=== PATIENT | female | born 1990 | race Caucasian/White ===

== ENCOUNTER 2016-04-24 16:53 | Outpatient (CLI) | payer OTHER | END 2016-04-24 16:54 | disposition home or self-care (01) | DX: Z36 Encounter for antenatal screening of mother (principal) ==

== ENCOUNTER 2016-05-22 14:52 | Outpatient (CLI) | payer OTHER | END 2016-05-22 14:53 | disposition home or self-care (01) | DX: Z3A.15 15 weeks gestation of pregnancy (principal) ==

== ENCOUNTER 2016-06-25 07:33 | Outpatient (CLI) | payer OTHER | END 2016-06-25 07:34 | disposition home or self-care (01) | DX: Z36 Encounter for antenatal screening of mother (principal) ==

== ENCOUNTER 2016-08-09 10:15 | Outpatient (CLI) | payer OTHER ==
[2016-08-09 11:41] LABS: HCT - HEMATOCRIT 29.9 % (37.0-47.0); HGB - HEMOGLOBIN 10.6 g/dL (12.0-16.0); MEAN CORPUSCULAR HEMOGLOBIN 30.7 pg (27.0-31.0); MEAN CORPUSCULAR HGB CONC 35.4 g/dL (32.0-36.0); MEAN CORPUSCULAR VOLUME 86.9 fL (81.0-99.0); MEAN PLATELET VOLUME 8.3 fL (7.9-10.8); RED BLOOD COUNT 3.44 10^6/uL (4.20-5.40); RED CELL DISTRIBUTION WIDTH 12.9 % (12.0-15.0); WHITE BLOOD COUNT 9.1 x10^3/uL (4.8-10.8)
== END 2016-08-09 10:16 | disposition home or self-care (01) ==
LOC: LAB 10:15
PROVIDERS: ATTEND Obstetrics & Gynecology
DX: Z36 Encounter for antenatal screening of mother (principal)
CPT/HCPCS: 36415; 82950; 86850

== ENCOUNTER 2016-10-09 08:00 | Outpatient (CLI) | payer OTHER | END 2016-10-09 08:01 | disposition home or self-care (01) | LOC: LAB.R 08:00 | PROVIDERS: ATTEND Obstetrics & Gynecology | DX: Z34.83 Encounter for supervision of other normal pregnancy, third trimester (principal) | CPT/HCPCS: 87081 ==

== ENCOUNTER 2016-11-15 08:23 | Outpatient (CLI) | payer OTHER ==
[2016-11-15 08:37] VITALS: BP 135/71
== END 2016-11-15 09:12 | disposition home or self-care (01) ==
LOC: WFO 08:23 → FBP 08:30 → WFO 09:12
PROVIDERS: ATTEND Obstetrics & Gynecology
DX: O48.0 Post-term pregnancy (principal); Z3A.41 41 weeks gestation of pregnancy
CPT/HCPCS: 59025

== ENCOUNTER 2016-11-18 16:18 | Outpatient (CLI) | payer OTHER ==
[2016-11-18 16:47] VITALS: BP 126/75
== END 2016-11-18 17:14 | disposition home or self-care (01) ==
LOC: WFO 16:18 → FBP 16:19 → WFO 17:14
PROVIDERS: ATTEND Obstetrics & Gynecology
DX: O48.0 Post-term pregnancy (principal); Z3A.41 41 weeks gestation of pregnancy
CPT/HCPCS: 59025

== ENCOUNTER 2016-11-19 13:27 | Inpatient (IN) | payer OTHER ==
[2016-11-19] MEDS ORDERED: SODIUM CHLORIDE FLUSH 0.9% 10 ML SYRINGE IVP PRN (14:38)
[2016-11-19] MEDS ORDERED: ONDANSETRON 4 MG/2 ML VIAL IVP PRN (14:38)
[2016-11-19] MEDS ORDERED: fentaNYL 100 MCG/2 ML VIAL IVP PRN (14:38)
--- NOTE | 2016-11-19 15:15 | HISTORY & PHYSICAL EXAMINATION ---
DATE OF ADMISSION: 11/19/2016 IDENTIFICATION: A 26-year-old G1, P1-0-0-1 with a 41-4/7-week intrauterine , EDC is 10/31/2016 changed by a 10-week ultrasound. HISTORY OF PRESENT ILLNESS: This is a patient of [facility] who presents on to labor and delivery on 11/19/2016 for cervical ripening. The patient is now 41 weeks 4 days . She states that she would like to be delivered. She was offered induction of labor at 41 weeks 0 days, but declined it at that time. Currently states that the baby girl is moving well. She denies any significant contractions. She also denies vaginal bleeding or loss of fluid. She had a non-stress test on 11/18/2016, that was category 1 and reactive. Her most recent cervical examination on 11/12/2016 reveal she was 3 cm dilated, 70% effaced, and -3 station, posterior and soft. PAST MEDICAL HISTORY: Anxiety and depression. She was previously on venlafaxine , but stopped on her own accord secondary to her . PAST SURGICAL HISTORY: None. ALLERGIES: NO KNOWN DRUG ALLERGIES. MEDICATIONS 1. vitamins. 2. Acyclovir 400 mg 1 tab p.o. t.i.d. 3. Iron sulfate 325 mg 1 tab p.o. b.i.d. SOCIAL HISTORY: She denies any tobacco, alcohol or illicit drug use. This a baby girl fetus. Her is Jack Cuadra and he is currently employed with the [employer]. PAST OBSTETRICAL HISTORY: Current. The patient has had consistent visits with us since 10 weeks gestation on 04/12/2016. She has been having consistent visits as recommended. This has been significant for an occasional herpetic outbreak, the first one occurred about 30 weeks' gestation and she has been placed on acyclovir. She denies any HSV symptoms. PAST GYNECOLOGIC HISTORY: She denies any abnormal Pap smears or other sexually transmitted diseases beyond HSV. FAMILY HISTORY: She denies any female carcinoma. REVIEW OF SYSTEMS: Negative unless otherwise stated. PAST GYNECOLOGICAL HISTORY: She denies any nausea, vomiting, fevers, chills, diarrhea, or constipation. OBJECTIVE VITAL SIGNS: Stable, she is afebrile. Last nights vitals showed that she was 98.1, heart rate 81, blood pressure 126/75, respiratory rate 17, O2 saturation 99%. GENERAL: The patient is a well-developed, well-nourished female in no apparent distress. She is alert and oriented x3. HEENT: Within normal limits. CARDIOVASCULAR: Rate is regular, no murmurs or rubs. PULMONARY: Lungs clear to auscultation bilaterally. ABDOMEN: Gravid, nontender. Estimated weight is 8 pounds. STUDIES laboratories reveal she is A positive. Chlamydia and gonorrhea are both negative, HIV is negative, RPR nonreactive, rubella immune, hepatitis B surface antigen is nonreactive. Quad screen is negative. anatomical survey is consistent with dates within normal limits. Placenta is posterior with 3-vessel umbilical cord. JACE measured 10.1 cm with a cervical length 3.8 cm. One hour GTT is 124 and white count at the time was 9.1. H and H was 10.6 and 29.9, platelets 146. GBS is negative. ASSESSMENT 1. A 26-year-old G1, P0 with a 41 and 4/7 week intrauterine . 2. Currently on Acyclovir suppression, no current symptoms. 3. Cervix remote from delivery. PLAN 1. We will have the patient do a non-stress test today and have a cervical examination. Depending on the exam, we may elect to proceed with cervical ripening versus Pitocin induction of labor. 2. Anticipate having the patient get an epidural for pain control during delivery. 3. Expect spontaneous vaginal delivery. 4. Will obtain a CBC, as well as a type and hold. JOB #: [id number] EXT JOB #:[id number] MAYTE
[2016-11-19 15:27] LABS: BASOPHILS % (AUTO) 0.2 %; EOSINOPHILS # (AUTO) 0.1 10^3/uL (0.0-0.7); EOSINOPHILS % (AUTO) 0.8 %; HCT - HEMATOCRIT 29.7 % (37.0-47.0); HGB - HEMOGLOBIN 10.4 g/dL (12.0-16.0); LYMPHOCYTES # (AUTO) 1.8 10^3/uL (1.5-3.5); LYMPHOCYTES % (AUTO) 15.8 %; MEAN CORPUSCULAR HEMOGLOBIN 29.4 pg (27.0-31.0); MEAN CORPUSCULAR VOLUME 83.8 fL (81.0-99.0); MEAN PLATELET VOLUME 8.7 fL (7.9-10.8); MONOCYTES # (AUTO) 0.9 10^3/uL (0.0-1.0); MONOCYTES % (AUTO) 8.2 %; NEUTROPHILS # (AUTO) 8.4 10^3/uL (1.5-6.6); RED BLOOD COUNT 3.55 10^6/uL (4.20-5.40); RED CELL DISTRIBUTION WIDTH 13.8 % (12.0-15.0); UNCORRECTED WHITE BLOOD COUNT 11.3 x10^3/uL; WHITE BLOOD COUNT 11.3 x10^3/uL (4.8-10.8)
[2016-11-19] MEDS ORDERED: ZOLPIDEM 5 MG TABLET PO PRN (17:56)
[2016-11-19] MEDS ORDERED: DINOPROSTONE 10 MG SUPP VG ONE (18:00)
--- NOTE | 2016-11-19 18:00 | PROVIDER PROGRESS NOTE ---
Labor Progress Note - Uterine Monitoring Uterine Monitoring Mode: positive: External toco Contraction Frequency (min/apart): Q3-8 Contraction Intensity: positive: Mild to moderate Uterine Resting Tone: positive: Soft - Monitoring Monitor Mode: positive: External ultrasound Heart Rate Variability: positive: Moderate (6-25 bmp) Accelerations: positive: Present, 15x15 Decelerations: positive: Late (Subtle decels) Strip Review: positive: Category I - Labor Progress Note Labor Progress Note/Additional Text: 26 yo with a 401w4d IUP Cervix remote from delivery No signs of HSV Subtle late decels Cervidil for cervical ripening Epidural PRN Pitocin when cervix more effaced Labs, EKG, Meds, Allergy - Lab Results Fish Bones: 11/19/16 15:00 Other Lab Results: Lab Results x24hrs 11/19/16 Range/Units 15:00 WBC 11.3 H (4.8-10.8) x10^3/uL RBC 3.55 L (4.20-5.40) 10^6/uL Hgb 10.4 L (12.0-16.0) g/dL Hct 29.7 L (37.0-47.0) % MCV 83.8 (81.0-99.0) fL MCH 29.4 (27.0-31.0) pg MCHC 35.0 (32.0-36.0) g/dL RDW 13.8 (12.0-15.0) % Plt Count 140 (130-450) 10^3/uL MPV 8.7 (7.9-10.8) fL Neut # 8.4 H (1.5-6.6) 10^3/uL Lymph # 1.8 (1.5-3.5) 10^3/uL [place] # 0.9 (0.0-1.0) 10^3/uL Eos # 0.1 (0.0-0.7) 10^3/uL Baso # 0.0 (0.0-0.1) 10^3/uL Absolute Nucleated RBC 0.00 x10^3/uL Nucleated RBC % 0.0 /100WBC - Medications Medications: Ambulatory Orders Medication Instructions Recorded Confirmed Acyclovir 400 mg PO TID 11/19/16 11/19/16 Ferrous Sulfate 325 mg PO BID 11/19/16 11/19/16 Pnv95/Ferrous Fumarate/FA 1 each PO DAILY 11/19/16 11/19/16 [ Tablet] - Allergy Allergy: Allergies Allergy/AdvReac Type Severity Reaction Status Date / Time No Known Drug Allergies Allergy Verified 11/19/16 16:36 Acyclovir 400 mg PO TID 11/19/16 Ferrous Sulfate 325 mg PO BID 11/19/16 Pnv95/Ferrous Fumarate/FA [ Tablet] 1 each PO DAILY 11/19/16
[2016-11-19] MEDS: ACETAMINOPHEN 325 MG TABLET PO PRN (19:49)
[2016-11-19] MEDS ORDERED: SODIUM CHLORIDE FLUSH 0.9% 10 ML SYRINGE IVP SCH (22:00)
--- NOTE | 2016-11-20 08:23 | PROVIDER PROGRESS NOTE ---
Labor Progress Note - Uterine Monitoring Uterine Monitoring Mode: positive: External toco Contraction Frequency (min/apart): Q3-5 Contraction Intensity: positive: Mild to moderate - Monitoring Monitor Mode: positive: External ultrasound Heart Rate Variability: positive: Moderate (6-25 bmp) Accelerations: positive: Present, 15x15 Decelerations: positive: None Strip Review: positive: Category I - Vaginal Exam Dilation (in cm): 3-4 Effacement (%): 80 Station: -2 Cervical Position: Posterior - Labor Progress Note Labor Progress Note/Additional Text: 26 yo with a 41w5d IUP Reassuring and maternal status No overnight events Improved cervical change Start pitocin Epidural PRN Expect Colace BID
[2016-11-20] MEDS ORDERED: LACTATED RINGERS 1,000 ML IV ONE ×3 (09:44→22:02)
[2016-11-20] MEDS: OXYTOCIN/SODIUM CHLORIDE 250 ML IV SCH (09:58)
--- NOTE | 2016-11-20 12:31 | PROVIDER PROGRESS NOTE ---
Labor Progress Note - Uterine Monitoring Uterine Monitoring Mode: positive: External toco Contraction Frequency (min/apart): Q3-4 Contraction Intensity: positive: Mild to moderate Uterine Resting Tone: positive: Soft - Monitoring Monitor Mode: positive: External ultrasound Heart Rate Baseline: 130's Heart Rate Variability: positive: Moderate (6-25 bmp) Accelerations: positive: Present, 15x15 Decelerations: positive: Late (Subtle lates, rare) Strip Review: positive: Category I - Vaginal Exam Dilation (in cm): (Deferred) - Labor Progress Note Labor Progress Note/Additional Text: 26 yo with a 41w5d IUP Inducible cervix Pitocin 7 milliunits/min Continue pitocin Epidural PRN Expect Reassuring and maternal status
--- NOTE | 2016-11-20 17:09 | PROVIDER PROGRESS NOTE ---
Labor Progress Note - Uterine Monitoring Uterine Monitoring Mode: positive: External toco Contraction Frequency (min/apart): Q3-4 Contraction Intensity: positive: Mild to moderate - Monitoring Monitor Mode: positive: External ultrasound Heart Rate Variability: positive: Moderate (6-25 bmp) Accelerations: positive: Present, 15x15 Decelerations: positive: None Strip Review: positive: Category I - Vaginal Exam Dilation (in cm): 4-5 Effacement (%): 80 Station: -2 Cervical Position: Posterior - Labor Progress Note Labor Progress Note/Additional Text: 26 yo with a 41w5d IUP Active labor AROM-- slightly tinged amniontic fluid Reassuring maternal and status. Epidural PRN Expect
[2016-11-20] MEDS ORDERED: fent/BUPIV 2 MCG/0.125% 250 ML EP ONE (18:21)
[2016-11-20] MEDS ORDERED: ONDANSETRON 4 MG/2 ML VIAL IVP PRN (18:50)
[2016-11-20] MEDS ORDERED: LACTATED RINGERS 500 ML IV ONE (18:50)
[2016-11-20] MEDS ORDERED: ePHEDrine 50 MG/ML VIAL IVP PRN (18:50)
[2016-11-20] MEDS ORDERED: diphenhydrAMINE INJ 50 MG/ML VIAL IVP PRN (18:50)
[2016-11-20] MEDS ORDERED: fent/BUPIV 2 MCG/0.125% 250 ML EP PRN (18:50)
[2016-11-20] MEDS ORDERED: METOCLOPRAMIDE 10 MG/2 ML VIAL IVP PRN (18:50)
[2016-11-20] MEDS ORDERED: NALOXONE 0.4 MG/ML VIAL IVP PRN (18:50)
[2016-11-20] MEDS ORDERED: NALBUPHINE 20 MG/ML AMP IVP PRN (18:50)
--- NOTE | 2016-11-21 00:52 | PROVIDER PROGRESS NOTE ---
Labor Progress Note - Uterine Monitoring Uterine Monitoring Mode: positive: External toco Contraction Frequency (min/apart): Q2-3 Contraction Intensity: positive: Moderate to strong Uterine Resting Tone: positive: Soft - Monitoring Monitor Mode: positive: External ultrasound Heart Rate Variability: positive: Moderate (6-25 bmp) Accelerations: positive: Present, 15x15 Decelerations: positive: Variable Strip Review: positive: Category II - Vaginal Exam Dilation (in cm): 10 Effacement (%): 100 Station: 3 Cervical Position: Anterior - Labor Progress Note Labor Progress Note/Additional Text: Patient pushing Pitocin 17 munits/min baseline trending upwards, about 160's Continue pitocin, expect but will consider vacuum attempt if FHT's continue to be elevated.
[2016-11-21] MEDS: OXYTOCIN/SODIUM CHLORIDE 250 ML IV SCH (02:06)
[2016-11-21] MEDS ORDERED: LACTATED RINGERS 1,000 ML IV ONE ×2 (02:38→06:26)
--- NOTE | 2016-11-21 02:54 | PROVIDER PROGRESS NOTE ---
Labor Progress Note - Uterine Monitoring Uterine Monitoring Mode: positive: External toco Contraction Frequency (min/apart): Q3 Contraction Intensity: positive: Moderate to strong Uterine Resting Tone: positive: Soft - Monitoring Monitor Mode: positive: External ultrasound Heart Rate Variability: positive: Moderate (6-25 bmp) Accelerations: positive: Present, 10x10 (=/32 wks) Decelerations: positive: Early, Variable Strip Review: positive: Category II - Vaginal Exam Dilation (in cm): 10 Effacement (%): 100 Station: 3 (ROP) Cervical Position: Anterior - Labor Progress Note Labor Progress Note/Additional Text: Patient CVE 10/100/+3, asynclitic and ROP. Pushing for a little less than 3 hours. Patient having a lot of back pain despite epidural Reassuring and maternal status D/W patient we may 1. continue laboring down, 2. vacuum attempt (risks, benefits , expectations discussed) 3. delivery if vacuum fails (discussed risks , benefits, expectations). Patient will discuss with and sister.
--- NOTE | 2016-11-21 03:31 | PROVIDER PROGRESS NOTE ---
Labor Progress Note - Labor Progress Note Labor Progress Note/Additional Text: Nj's mom has now been asked to help make a decision with Antoinette and Nj as to how to proceed. Nj's mom came out of the room to clarify their options of waiting, vacuum delivery and delivery. Explained rotation is unlikely due to low station and that vacuum has it's risks as well. If unsuccessful vacuum attempt will have to proceed to an immediate delivery. If a successful vacuum delivery of the head, concern for shoulder dystocia given late term. Nj's mom was satisfied with the conversation and went back into the room. About 5-10 minutes after Barbara mom went back into the room, she had a near syncopal event. She was found on the ground, supine. Nj had apparently noted that his mom was getting clammy and had her lay down. She was given orange juice and crackers. She admits to not have eaten in awhile. Nj's mom declined going to the ER despite ER staff coming down with a wheelchair. Antoinette exhausted and cannot make a decision. Nj has made the decision to have Antoinette sleep for now and then make a decision after a nap. and maternal status are reassuring at this time so a respite is appropriate at this time. Patient hit the epidural bolus. Will have anesthesia bolus epidural since it is not adequately controlling her pain (likely a reflection of baby's OP position).
[2016-11-21] MEDS ORDERED: CITRIC ACID/SODIUM CITRATE 15 ML UDC PO SCH (05:23)
[2016-11-21] MEDS ORDERED: ceFAZolin 2 GM/50 ML 2 GM/50 ML BAG IV SCH (07:00)
[2016-11-21] MEDS ORDERED: miSOPROStol 200 MCG TABLET ONE (07:51)
[2016-11-21] MEDS ORDERED: OXYTOCIN/SODIUM CHLORIDE 250 ML IV ONE ×2 (08:49→15:37)
[2016-11-21] MEDS ORDERED: HYDROCORTISONE 1% CREAM 28 GM TUBE PR PRN (08:49)
[2016-11-21] MEDS ORDERED: SIMETHICONE CHEW 80 MG TABLET PO PRN (08:49)
[2016-11-21] MEDS ORDERED: WITCH HAZEL/GLYCERIN 1 EACH MED..PAD TOP PRN (08:49)
[2016-11-21] MEDS ORDERED: LACTATED RINGERS 1,000 ML IV SCH (09:00)
--- NOTE | 2016-11-21 09:05 | DELIVERY NOTE ---
Delivery Note - Labor Labor: positive: Augmented by ARM, Augmented by oxytocin, Induced by oxytocin - Infant Delivery Method Delivery Method: positive: Vacuum assist - Presentation Presentation: positive: Vertex, OA - occiput anterior - Nuchal Cord Nuchal Cord: positive: Present (x1), Reduced - Anesthetic Anesthetic: positive: Lidocaine - 1% plain - Amniotic Fluid Description Amniotic Fluid Description: positive: Light meconium - Vacuum Use Indication for Vacuum Use: positive: Prolonged 2nd stage, Other (Maternal exhaustion) Type of Vacuum Cup: positive: Cup: Rigid Vacuum Extraction: positive: Successful Number of pop-offs: 1 - Episiotomy Type Episiotomy Type: positive: None - Laceration Laceration: positive: 3rd degree, Perineal - Suture Suture Type: positive: Vicryl Suture Size: positive: 3-0 - Delivery Outcome Delivery Outcome: positive: Livebirth - [place] : positive: Placed in direct skin contact with mother, Bulb syringe sex: positive: Female : 8 : 9 - Cord Cord: positive: 3 vessels - Placenta Placenta: positive: Intact, Spontaneous - Estimated Blood Loss Estimated Blood Loss (in cc): 300 - Post Delivery Events Post Delivery Events: positive: No post delivery events - Delivery Comments (Free Text/Narrative) Delivery Comments (Free Text/Narrative): 26 yo with a 41w6d IUP with a prolonged 2nd stage and maternal exhaustion. Patient pushed for 3 hours then labored down. More caput but progress in descent. Some areas of increased baseline and subtle lates but overall reassuring buttermaker continuous churn variability. D/W the patient the risks, benefits, alternatives, indications and expectations of a vacuum assisted vaginal delivery. All questions answered to her satisfaction. Bowel and bladder empty. Epidural in place and working well. OR notified and ready to go if vacuum failed. Patient explained the risks, benefits and expectations of a delivery if that should occur. Baby asynclitic, OA. Cervix completely dilated and effaced, and skull . 2 application with 1 popoff. Slow but positive progress over 5 contractions. head delivered and loose nuchal cord x 1 reduced. No shoulder dystocia. Right shoulder anterior. Bulb syringe on maternal abdomen. Placenta delivered spontaneously, intact, 3VC. Partial 3rd degree laceration repaired with 3- vicryl. EBL 300 mL. Apgars 7/9. No complications. Weight pending.
[2016-11-21] MEDS: ACETAMINOPHEN 325 MG TABLET PO PRN ×3 (09:27→21:24)
[2016-11-21] MEDS: DOCUSATE SODIUM 100 MG CAPSULE PO SCH ×2 (10:17→21:25)
[2016-11-21] MEDS: CELECOXIB 100 MG CAPSULE PO SCH ×2 (10:17→21:25)
[2016-11-21] MEDS: HYDROcod/ACETAM 5/325 MG TABLET PO PRN ×3 (13:12→22:51)
[2016-11-21] MEDS: HYDROCORTISONE/PRAMOXINE 10 GM PR PRN ×2 (13:13→16:54)
[2016-11-21] MEDS ORDERED: MINERAL OIL LIGHT 10 ML MC ONE (15:37)
[2016-11-21] MEDS ORDERED: LIDOCAINE-MPF 1% 30 ML VIAL SUBQ ONE (15:37)
[2016-11-22] MEDS: ACETAMINOPHEN 325 MG TABLET PO PRN ×2 (04:29→23:54)
--- NOTE | 2016-11-22 08:49 | PROVIDER PROGRESS NOTE ---
Subjective - Prog Note Date Prog Note Date: 11/22/16 Prog Note Time: 08:47 - Subjective Pt reports feeling: Improved Subjective: Patient sitting in bed, breast feeding baby on Bopp[place]. Jesus at bedside. Antoinette got 3 hours of broken sleep, Jesus about 4. Tinnitus in left ear mildly improved. States was having ear pain in left ear prior to induction. Tried to use drops and other OTC to remove ear wax. Bleeding improving. Ambulating and tolerating a regular diet. Feeling sore in pelvis. Objective - Vital Signs/Intake & Output Reviewed Vital Signs: Yes Vital Signs: Vital Signs x48h Temp Pulse Resp BP Pulse Ox 11/22/16 07:00 97.7 F 85 16 123/59 L 100 11/22/16 04:30 98.2 F 73 18 112/59 L 100 11/22/16 03:00 98.1 F 72 16 111/59 L 100 Intake & Output: Intake & Output 11/19/16 11/20/16 11/21/16 11/22/16 23:59 23:59 23:59 23:59 Intake Total 3950 1582.267 Output Total 925 626 Balance 3025 956.267 - Objective General Appearance: positive: No acute distress ENT: positive: Other (Right inner ear with complete coverage of ear wax. Left ear weepy, ear wax, pink.) Abdomen: positive: Non-tender (Firm fundus) Neurologic/Psychiatric: positive: Oriented x3 - Lab Results Fish Bones: 11/19/16 15:00 Assessment/Plan - Problem List (1) Delivery normal Impression: 26 yo S/p VAVD, PPD #1 Normal recovery Routine care (2) Otitis Impression: Left mild otitis media Rx augmentin Qualifiers: Laterality: left Qualified Code(s): H66.92 - Otitis media, unspecified, left ear
[2016-11-22] MEDS: DOCUSATE SODIUM 100 MG CAPSULE PO SCH ×2 (09:05→21:06)
[2016-11-22] MEDS: CELECOXIB 100 MG CAPSULE PO SCH ×2 (09:05→21:06)
[2016-11-22] MEDS: HYDROcod/ACETAM 5/325 MG TABLET PO PRN ×3 (09:06→21:33)
[2016-11-22] MEDS: AMOX/CLAV 875 MG/125 MG TABLET PO SCH ×2 (09:51→21:06)
--- NOTE | 2016-11-23 08:27 | PROVIDER PROGRESS NOTE ---
Subjective - Prog Note Date Prog Note Date: 11/23/16 Prog Note Time: 08:23 - Subjective Pt reports feeling: Improved Subjective: Patient in bed, finishing breakfast. [id number] at bedside, holding baby Juhi. Pain 2-3, taking vicodin. No nausea or vomiting. No fevers or chills. Ambulating and tolerating regular diet. Urinating without difficulty. Light lochia. Objective - Vital Signs/Intake & Output Reviewed Vital Signs: Yes Vital Signs: Vital Signs x48h Temp Pulse Resp BP Pulse Ox 11/23/16 08:14 98.1 F 83 18 126/76 100 11/23/16 04:40 98.2 F 82 18 125/61 99 Intake & Output: Intake & Output 11/20/16 11/21/16 11/22/16 11/23/16 23:59 23:59 23:59 23:59 Intake Total 3950 3582.267 450 Output Total 925 626 Balance 3025 2956.267 450 - Objective General Appearance: positive: No acute distress Abdomen: positive: Non-tender (Firm fundus) Neurologic/Psychiatric: positive: Oriented x3 - Lab Results Fish Bones: 11/19/16 15:00 Assessment/Plan - Problem List (1) Delivery normal Impression: 26 yo S/p VAVD 11/21/2016 Normal recovery Routine care Discharge to home Follow up with me in 6 weeks. Will discuss control at that time. Increase activity as tolerated. Rx for colace, ibuprofen, tylenol and augmentin Efax'd to [facility]. Handwritten Rx for vicodin for home. Call if worsening fevers, chills, abdominal pain or vaginal bleeding. (2) Otitis Impression: Improving otitis media Continue Rx augmentin. Rx Efaxed to [facility]. Qualifiers: Laterality: left Qualified Code(s): H66.92 - Otitis media, unspecified, left ear Discharge Plan Disposition: Home, Self Care Condition: Good Diet: Regular Activity Restrictions: Activity as Tolerated Shower Restrictions: No Driving Restrictions: Yes (No driving if taking vicodin) Weight Bearing: Full Weight No Smoking: If you smoke, Please STOP! Call for help.
[2016-11-23] MEDS: CELECOXIB 100 MG CAPSULE PO SCH (08:50)
[2016-11-23] MEDS: ACETAMINOPHEN 325 MG TABLET PO PRN (08:54)
[2016-11-23] MEDS: HYDROcod/ACETAM 5/325 MG TABLET PO PRN ×2 (08:54→14:34)
[2016-11-23] MEDS: DOCUSATE SODIUM 100 MG CAPSULE PO SCH (08:55)
[2016-11-23] MEDS: AMOX/CLAV 875 MG/125 MG TABLET PO SCH (09:07)
[2016-11-23] MEDS: HYDROCORTISONE/PRAMOXINE 10 GM PR PRN (09:14)
[2016-11-23 13:36] VITALS: BP 126/70
--- NOTE | 2016-11-23 15:45 | Labor Flowsheet ---
Labor Flowsheet Datetime Report Generated by CPN: 11/23/2016 15:44 Datetime: 11/23/2016 13:36 VITAL SIGNS NBP Sys/Sabrina/Mean (mmHg): 126 : 70 : 82 Pulse: 76 LaborFlag: Labor Datetime: 11/22/2016 17:40 SpO2 (%): 99 Datetime: 11/21/2016 08:00 Stage of : Labor UTERINE ACTIVITY Monitor Mode: External Frequency (min): pushing Quality: Strong ASSESSMENT A Monitor Mode: Doppler Monitor Interventions for FHR: Ultrasound Adjusted FHR Baseline Rate : 150 FHR Baseline Changes: No Baseline Change Variability: Moderate 6-25 bpm Decelerations: Variable Category: Category II Comments: vacuum applied 0757 until at 0806 Datetime: 11/21/2016 07:45 Duration (sec): pushing Pattern: Normal: <= 5 Contractions in 10 Minutes Resting Tone (Palpate): Relaxed Pitocin Checklist: At Least 1 Acceleration of 15 bpm x 15 Seconds in 30 Minutes or Adequate Variabi lity; No More than 5 Uterine Contractions in 10 Minutes for any 20 Minute Interval Contraction Comments: decels with pushing Accelerations: 15X15 Datetime: 11/21/2016 07:39 COMMUNICATION Communication: Provider at Bedside Datetime: 11/21/2016 07:04 Patient Position/Activity: Left Tilt Datetime: 11/21/2016 07:00 Actions for Decelerations: Side to Side; Oxygen Applied; IV Bolus Oxygen Amount (LPM): 10 Oxygen Method: Face Mask Provider Notified (Name): Dr. Teran Communication Comments: discussing POC Datetime: 11/21/2016 06:33 Monitor Interventions for UA: [place] Adjusted Datetime: 11/21/2016 06:30 TEACHING Instructional Method: Verbal Plan of Care: Plan of Care Discussed; Vaginal Delivery; C/S Delivery; Labor Datetime: 11/21/2016 06:01 Temperature (C): 37.5 Datetime: 11/21/2016 05:05 Respirations: 24 Datetime: 11/21/2016 04:57 Anesthesia Level Check: T7 Datetime: 11/21/2016 04:47 I/O Interventions: Muniz Cath Inserted Datetime: 11/21/2016 04:30 Labor/Induction: Interventions Datetime: 11/21/2016 03:42 Epidural Procedure: Loading Dose Datetime: 11/21/2016 03:01 PATIENT CARE IV/Blood Work: IV Bolus Started Datetime: 11/21/2016 03:00 Pain Assessment Comments: per MD call anesthesia to bolus pt and allow to rest to make decision for vaccuum vs. Datetime: 11/21/2016 02:30 Pain Management: Epidural Datetime: 11/21/2016 02:09 MEDICATIONS Pitocin (milliunits): Increased to @ 17 Datetime: 11/21/2016 02:00 MATERNAL ASSESSMENT Level of Consciousness: Fully Conscious Breath Sounds, Left: Clear and Equal Breath Sounds, Right: Clear and Equal Datetime: 11/21/2016 01:34 Pushing Position: Pushing Squatting Datetime: 11/21/2016 01:17 PAIN Pain Scale: 8 Pain Presence: Intermittent Pain Type: Contraction Datetime: 11/21/2016 00:59 Patient Care Comments: laboring down, stopped pushing Datetime: 11/21/2016 00:15 Anesthesia Comments: epidural turned back on Datetime: 11/20/2016 23:51 STAGE 2 Pushing: Coached on Pushing Datetime: 11/20/2016 23:25 VAGINAL EXAM Dilatation (cm): 10.0 Effacement (%): 100 Station: 3 Exam by: Chang, RN Datetime: 11/20/2016 19:39 Unit Routine: Unit Personnel Datetime: 11/20/2016 19:36 Headache: Denies Datetime: 11/20/2016 18:22 Pain Location: Abdomen Pain Goal: 0 Pain Relief Measures: Epidural Given ANESTHESIA Epidural Positioning: Sitting Datetime: 11/20/2016 18:15 Pain Coping: Breathing Through Contractions Datetime: 11/20/2016 17:50 Medication Comments: LR bolus started for eplidural 500ml Datetime: 11/20/2016 17:11 Hygiene: Nata Care Datetime: 11/20/2016 16:57 Membrane Status: Ruptured Membranes Rupture Method: Artificial Amniotic Fluid Color: Light Meconium Amniotic Fluid Amount: Small Amniotic Fluid Odor: Normal Membrane Comments: Dr. Teran AROM Provider Reviewed Strip: Yes Datetime: 11/20/2016 16:33 Teaching Comments: sitting on birthing ball Datetime: 11/20/2016 12:18 Strip Reviewed by: Dr. Teran Datetime: 11/20/2016 07:30 Nausea/Vomiting: Denies RUQ Epigastric Pain: Denies Datetime: 11/20/2016 05:31 Vaginal Bleeding: None Cervix, Consistency: Soft Cervix, Position: Posterior Vaginal Exam Comments: Cervidil pulled Datetime: 11/19/2016 20:00 DTR's/Clonus: DTRs 1+; No Clonus Datetime: 11/19/2016 19:49 Analgesics/Sedatives: Tylenol (mg) @ Datetime: 11/19/2016 17:36 Cervical Ripening Agents: Cervidil
--- NOTE | 2016-11-23 16:31 | DISCHARGE SUMMARY ---
DATE OF ADMISSION: 11/20/2016 DATE OF DISCHARGE: 11/23/2016 DIAGNOSES ON ADMISSION 1. A 26-year-old G1, P0 with a 41-4/7-week intrauterine . 2. Cervix remote from delivery. DIAGNOSES ON DISCHARGE 1. A 26-year-old G1, P1-0-0-1 status post vacuum-assisted vaginal delivery on 11/21/2016 secondary to prolonged second stage and maternal exhaustion. 2. Left otitis media. BRIEF HISTORY: This a patient of [facility] who presented on 11/19/2016 for a late te rm induction of labor. The patient was given Cervidil and later Pitocin. The patient had an epidural for pain relief. Artificial rupture of membranes showed light meconium. The patient got to complete a nd pushed for about 3 hours. Though the head was +3, the patient was too exhausted. We let her labor down even more and proceeded to do a vacuum-assisted vaginal delivery secondary to prolonged 2n d stage, as well as maternal exhaustion. The patient delivered a viable female infant with Apgars 8 a nd 9 at one and five minutes respectively. Baby weighed 8 pounds 1.2 ounces. The patient sustained a partial 3rd-degree perineal laceration that was repaired with 3-0 Vicryl. The patient also started complaining of tinnitus in her left ear during active labor. This was first attributed to her epidural anesthesia. I took a look at her ear and saw that it was likely otitis med ia. The patient was then started on Augmentin 800 mg b.i.d. The patient will be discharged to home on day #2, 11/23/2016. MEDICATIONS: Prescriptions for ibuprofen, Colace, Tylenol, and Augmentin have been sent over to [facility]. The patient will be given precautions for no heavy lifting but may increase activity as tolerated. Fu rthermore, patient to see me in 6 weeks for routine visit, where we will discuss contracep tion. Finally, the patient is to call me should she have any worsening fevers, chills, abdominal pain , or vaginal bleeding. JOB #: [id number] EXT JOB #:[id number]
== END 2016-11-23 15:30 | disposition home or self-care (01) | DRG 774 ==
LOC: WFO 13:27 → FBP 13:28 → WFO 14:37 → FBP 14:48 → OBSVTOIN 11-20 19:14
PROVIDERS: ADMIT Obstetrics & Gynecology; ATTEND Obstetrics & Gynecology
PROC: 3E0P7VZ Introduction of Hormone into Female Reproductive, Via Natural or Artificial Opening (ICD-10-PCS; 2016-11-19)
PROC: 3E0P3VZ Introduction of Hormone into Female Reproductive, Percutaneous Approach (ICD-10-PCS; 2016-11-20)
PROC: 10D07Z6 Extraction of Products of Conception, Vacuum, Via Natural or Artificial Opening (ICD-10-PCS; principal; 2016-11-21)
PROC: 0DQR0ZZ Repair Anal Sphincter, Open Approach (ICD-10-PCS; 2016-11-21)
PROC: 10907ZC Drainage of Amniotic Fluid, Therapeutic from Products of Conception, Via Natural or Artificial Opening (ICD-10-PCS; 2016-11-21)
DX: O48.0 Post-term pregnancy (principal); O98.52 Other viral diseases complicating childbirth; O41.1230 Chorioamnionitis, third trimester, not applicable or unspecified; O70.20 Third degree perineal laceration during delivery, unspecified; Z37.0 Single live birth; Z3A.41 41 weeks gestation of pregnancy; O76 Abnormality in fetal heart rate and rhythm complicating labor and delivery; O63.1 Prolonged second stage (of labor); O75.81 Maternal exhaustion complicating labor and delivery; O64.0XX0 Obstructed labor due to incomplete rotation of fetal head, not applicable or unspecified; O69.81X0 Labor and delivery complicated by cord around neck, without compression, not applicable or unspecified; O77.0 Labor and delivery complicated by meconium in amniotic fluid; B00.9 Herpesviral infection, unspecified; O99.89 Other specified diseases and conditions complicating pregnancy, childbirth and the puerperium; H66.92 Otitis media, unspecified, left ear; O99.344 Other mental disorders complicating childbirth; F32.9 Major depressive disorder, single episode, unspecified; F41.9 Anxiety disorder, unspecified
CPT/HCPCS: 59025; 59200; 85025; 86850; 86900; 86901; 88307; 96365; 96366